=== PATIENT | male | born 1995 ===

== ENCOUNTER 2018-07-29 18:31 | Emergency (ER) | payer OTHER ==
[2018-07-29 18:40] VITALS: BP 118/73; PULSE 82; RESP 18; TEMP 97.9; O2SAT 99
[2018-07-29] MEDS ORDERED: Silver Sulfadiazine 1% CREAM (50 gm) ONE (19:47)
--- NOTE | 2018-07-29 20:16 | ED PDOC ---
Burn Injury/Smoke Inhalation Time Seen by Provider: 07/29/18 19:29 Chief Complaint (Nursing): Burn Chief Complaint (Provider): Burn History Per: Patient History/Exam Limitations: no limitations Injury Occurred (Timing): Hours Ago: (1700) Additional Complaint(s): 23 year old male with no pmhx presents to the ED for evaluation of a burn to his right foot after accidentally dropping boiling chicken stock on it around 1700 today at work. Patient additionally reports the liquid touched his anterior right leg, but mostly the foot. He notes placing burn cream available at his job on the foot damon, and is able to ambulate with intermittent pain. Otherwise denies numbness and tingling. PMD: Liyah Ross Past Medical History Reviewed: Historical Data, Nursing Documentation, Vital Signs Vital Signs: Last Vital Signs Temp 97.9 F 07/29/18 18:38 Pulse 82 07/29/18 18:38 Resp 18 07/29/18 18:38 BP 118/73 07/29/18 18:38 Pulse Ox 99 07/29/18 18:38 - Medical History PMH: No Chronic Diseases - Surgical History Surgical History: No Surg Hx - Family History Family History: States: Unknown Family Hx - Social History Current smoker - smoking cessation education provided: No Alcohol: None Drugs: Denies - Home Medications Home Medications: Ambulatory Orders Medication Instructions Recorded Cephalexin [Keflex] 500 mg PO QID 10 Days capsule 07/29/18 - Allergies Allergies/Adverse Reactions: Allergies Allergy/AdvReac Type Severity Reaction Status Date / Time No Known Allergies Allergy Verified 07/29/18 18:40 Review of Systems ROS Statement: Except As Marked, All Systems Reviewed And Found Negative Skin: Positive for: Other (burn to right foot) Neurological: Negative for: Numbness (or tingling to right foot) Physical Exam - Reviewed Nursing Documentation Reviewed: Yes Vital Signs Reviewed: Yes - Physical Exam Appears: Positive for: No Acute Distress Pulses-Dorsalis Pedis (R): 2+ Pulses-Post. Tibialis (R): 2+ Extremity: Positive for: Normal ROM (full actively of right ankle), Other (Right foot, with ointment noted on wound: scattered 1st degree damon on the dorsum of foot closest to ankle with 2nd degree burn (not circumferential) approx. 4 1/2 cm with open blistering with serous drainage; No burn noted on anterior aspect right lower leg; sensation intact.) - ECG O2 Sat by Pulse Oximetry: 99 (RA) Pulse Ox Interpretation: Normal Medical Decision Making Medical Decision Making: Time: 2014 Initial Impression: first and second degree damon to right foot Initial Plan: --Sterile gauze dressing placed --Referral to burn center --Prescription for antibiotics Scribe Attestation: Documented by Cassia Roberson, acting as a scribe for Henrietta Bernard PA-C. Provider Scribe Attestation: All medical record entries made by the Scribe were at my direction and personally dictated by me. I have reviewed the chart and agree that the record accurately reflects my personal performance of the history, physical exam, medical decision making, and the department course for this patient. I have also personally directed, reviewed, and agree with the discharge instructions and disposition. Disposition - Clinical Impression Clinical Impression: Second degree burn injury - Patient ED Disposition Is Patient to be Admitted: No Counseled Patient/Family Regarding: Need For Followup, Rx Given - Disposition Referrals: Liyah Ross [Staff Provider] - Disposition: Routine/Home Disposition Time: 20:24 Condition: STABLE Additional Instructions: Use Vaseline on wound and keep area covered. Rest for the next 2 days with foot elevated. Tylenol or Ibuprofen for pain control. Return to ER if you start to develop fever or redness at the area. F/u with your primary care doctor in 1 week for wound check. Prescriptions: Cephalexin [Keflex] 500 mg PO QID 10 Days capsule Instructions: Skin Damon (DC) Forms: [facility] (Kiswahili), [facility] School/Work Excuse Print Language: CITIZEN OF [place]
== END 2018-07-29 21:21 | disposition home or self-care (01) ==
LOC: H.ER 18:31
DX: T25.221A Burn of second degree of right foot, initial encounter (principal); X11.8XXA Contact with other hot tap-water, initial encounter; Y99.0 Civilian activity done for income or pay